=== PATIENT | female | born 1990 | race Caucasian/White ===

== ENCOUNTER 2022-03-05 17:49 | Emergency (ER) | payer OTHER ==
[2022-03-05 18:16] LABS: BASOPHIL 0.3 % (0-2); EOSINOPHIL 0.5 % (0-5); HCT 16.2 % (37.0-47.0); LYMPHOCYTE 26.7 % (15-48); MCH 32.1 pg (25.0-31.0); MCHC 32.1 g/dL (32.0-36.0); MPV 9.7 fL (6.0-9.5); NEUTROPHIL 66.2 % (41-80); NRBC 0; PLT 78 K/uL (150-400); RBC 1.62 M/uL (4.20-5.40); RDW 12.6 % (11.5-14.0)
[2022-03-05 18:19] LABS: HGB 5.2 g/dl (12.5-16.0)
[2022-03-05 19:04] LABS: CREATININE 0.6 mg/dL (0.51-0.95); POTASSIUM 3.1 mmol/L (3.5-5.1)
== END 2022-03-05 18:48 | disposition other institution (70) ==
LOC: FER 17:49
PROVIDERS: Emergency Medicine
DX: S42.101A Fracture of unspecified part of scapula, right shoulder, initial encounter for closed fracture (principal); S42.401A Unspecified fracture of lower end of right humerus, initial encounter for closed fracture; S42.021A Displaced fracture of shaft of right clavicle, initial encounter for closed fracture; S10.91XA Abrasion of unspecified part of neck, initial encounter; Z91.018 Allergy to other foods; Z91.010 Allergy to peanuts; V43.52XA Car driver injured in collision with other type car in traffic accident, initial encounter
CPT/HCPCS: 36415; 71045; 72170; 73070; 73120; 80048; 84703; 85025; J3010; J7030